=== PATIENT | male | born 1965 | race Caucasian/White ===

== ENCOUNTER 2019-10-17 01:26 | Emergency (ER) | payer OTHER ==
[~2019-10-17] VITALS: Ht 185.4 cm; Wt 94.0 kg
[~2019-10-17 01:26] MED LIST: CLON0.1T12 PO; CLONAZEPAM1 MG PO; CYCL10TA2 PO; FOLI20CA PO; HYDR-3164 PO; IBUP-1670 PO; LORA-434 PO; METO-239 PO; METO25TA4 PO; MULT-246 PO; PARO40TA61 PO; THIA100T57 PO
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
[2019-10-17] MEDS ORDERED: LIDOCAINE 1% PF 30 ML VIAL. INJ ONE (01:45)
--- NOTE | 2019-10-17 02:17 | RAD ---
CT scan of the head without contrast 10/17/2019 Clinical History: Head injury. Technique: Unenhanced, contiguous, 5 mm axial sections were obtained through the head. One or more of the following individualized dose reduction techniques were utilized for this study: 1. Automated exposure control. 2. Adjustment of the mA and/or kV according to patient size. 3. Use of iterative reconstruction technique. Findings: Comparison study is dated 05/18/2019. There is generalized parenchymal atrophy. Areas of decreased attenuation are seen within the periventricular and subcortical white matter of both cerebral hemispheres consistent with areas of small vessel ischemic disease. No acute parenchymal abnormality is seen. No extra-axial fluid collection is noted. No skull fracture is seen. Soft tissue swelling with an associated laceration is seen involving the right frontal scalp. Impression: No acute intracranial abnormality is seen. Electronically signed by: Paulo Alcantara MD (10/17/2019 2:14 AM) [id number]
[2019-10-17 03:35] VITALS: BP 126/84
== END 2019-10-17 03:40 | disposition home or self-care (01) ==
LOC: ER 01:26 → EEVIPCON 01:26 → ER 03:40
DX: S01.81XA Laceration without foreign body of other part of head, initial encounter (principal); R51 Headache; I10 Essential (primary) hypertension; F41.9 Anxiety disorder, unspecified; F32.9 Major depressive disorder, single episode, unspecified; Y08.89XA Assault by other specified means, initial encounter; Y93.89 Activity, other specified; Y92.89 Other specified places as the place of occurrence of the external cause; Y99.8 Other external cause status
CPT/HCPCS: 12015; 70450; 99284; J3490

== ENCOUNTER 2019-11-01 17:13 | Emergency (ER) | payer SELFPAY ==
[~2019-11-01] VITALS: Ht 180.3 cm; Wt 94.9 kg
[2019-11-01 17:25] VITALS: BP 159/90
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
== END 2019-11-01 18:27 | disposition home or self-care (01) ==
LOC: ER 17:13
DX: S01.81XD Laceration without foreign body of other part of head, subsequent encounter (principal); F10.10 Alcohol abuse, uncomplicated; Z98.890 Other specified postprocedural states; Y08.89XD Assault by other specified means, subsequent encounter
CPT/HCPCS: 99284

== ENCOUNTER 2019-12-13 11:02 | Emergency (ER) | payer SELFPAY ==
[~2019-12-13] VITALS: Ht 185.4 cm; Wt 95.0 kg
[2019-12-13 11:20] VITALS: BP 159/85
[2019-12-13] MEDS ORDERED: CETIRIZINE HCL 10 MG TABLET. PO STA (11:38)
[2019-12-13] MEDS ORDERED: predniSONE 20 MG TABLET PO ONE (11:45)
[2019-12-13] MEDS ORDERED: FAMOTIDINE 20 MG TABLET. PO ONE (11:45)
--- NOTE | 2019-12-13 12:46 | RAD ---
Ultrasound venous system of the lower extremities 12/13/2019. Reason for exam: Swelling. Color Doppler and spectral waveform analysis was performed along with real-time grayscale technique. The deep venous system of both lower extremities shows normal compressibility and normal Doppler flow and augmentation of flow extending from the common femoral segment to the popliteal segment. The visualized calf veins also appear normal. IMPRESSION: No evidence of DVT. Electronically signed by: Asad Perry Jr., MD (12/13/2019 12:43 PM) [facility]
[2019-12-13] MEDS ORDERED: DIPH25CA58 PO (12:57)
[2019-12-13] MEDS ORDERED: FAMO20TA5 PO (12:57)
[2019-12-13] MEDS ORDERED: PRED-220 PO (12:57)
--- NOTE | 2019-12-13 12:57 | PHYS DOC ---
Past Medical History Past Medical History: Other Additional Past Medical Histor: RHEUMATIC FEVER, HEMORROID,SKINCANCER,ETOH Past Surgical History: Other Additional Past Surgical Histo: SKIN CA-L EAR Smoking Status: Current Every Day Smoker Alcohol Use: Heavy Additional Information: DRINKS 6-8 DRINKS DAILY. Drug Use: None General Adult EDM: Chief Complaint: SKIN PROBLEM HPI: HPI: Patient is a 53 year old male who presents to the ED today to be evaluated for a rash to bilateral lower extremities as well as swelling. Patient states on Friday he was camping and walked through switch grass which cut his leg, he states 2 days ago he noted increased swelling to bilateral lower extremities. Denies any fever. Patient is requesting to also be checked to make sure he does not have a DVT to his legs. Review of Systems: Review of Systems: Constitutional: Denies fever or chills. [] Musculoskeletal: Denies back pain or joint pain. [] Integument: Rash to bilateral lower extremities Neurologic: Denies headache, focal weakness or sensory changes. [] Psychiatric: Denies depression or anxiety. [] Heart Score: Risk Factors: Risk Factors: DM, Current or recent (<one month) smoker, HTN, HLP, family history of CAD, obesity. Risk Scores: Score 0 - 3: 2.5% MACE over next 6 weeks - Discharge Home Score 4 - 6: 20.3% MACE over next 6 weeks - Admit for Clinical Observation Score 7 - 10: 72.7% MACE over next 6 weeks - Early Invasive Strategies Current Medications: Current Medications Medications (Trade) Dose Ordered Sig/Candace Start Time Stop Time Status Last Admin Dose Admin Cetirizine HCl (ZyrTEC) 10 mg 1X STAT 12/13/19 11:38 12/13/19 11:41 DC 12/13/19 12:08 10 MG Famotidine (Pepcid) 20 mg 1X ONCE 12/13/19 11:45 12/13/19 11:46 DC 12/13/19 12:08 20 MG Prednisone (Prednisone) 60 mg 1X ONCE 12/13/19 11:45 12/13/19 11:46 DC 12/13/19 12:08 60 MG Allergies: Allergies: Allergies Coded Allergies Type Severity Reaction Last Updated Verified No Known Drug Allergies 11/01/19 No Physical Exam: PE: Constitutional: Well developed, well nourished, no acute distress, non-toxic appearance. [] Skin: Warm, dry, bilateral lower extremities with moderate amount of linear erythematous rash, there is +2 edema to bilateral lower extremities. +2 pedal pulses bilaterally. Negative Homans sign bilaterally. Back: No tenderness, no CVA tenderness. [] Extremities: No tenderness, no cyanosis, no clubbing, ROM intact, no edema. [] Neurologic: Alert and oriented X 3, normal motor function, normal sensory function, no focal deficits noted. [] Psychologic: Affect normal, judgement normal, mood normal. [] Current Patient Data: Vital Signs: Vital Signs Date Time Temp Pulse Resp B/P (MAP) Pulse Ox O2 Delivery O2 Flow Rate FiO2 12/13/19 11:20 98.5 89 16 159/85 (109) 97 Room Air 98.5 EKG: EKG: [] Radiology/Procedures: Radiology/Procedures: []PROCEDURE: VENOUS LOWER EXT BILATERAL Ultrasound venous system of the lower extremities 12/13/2019. Reason for exam: Swelling. Color Doppler and spectral waveform analysis was performed along with real-time grayscale technique. The deep venous system of both lower extremities shows normal compressibility and normal Doppler flow and augmentation of flow extending from the common femoral segment to the popliteal segment. The visualized calf veins also appear normal. IMPRESSION: No evidence of DVT. Electronically signed by: Mohsen Gomez Jr., MD (12/13/2019 12:43 PM) [facility] DICTATED and SIGNED BY: MOHSEN GOMEZ Jr, MD DATE: 12/13/19 1243 Course & Med Decision Making: Course & Med Decision Making Pertinent Labs and Imaging studies reviewed. (See chart for details) This is a 53-year-old male patient who presents to the ED today with a rash to bilateral lower extremities after walking through switch grass during a camping event. He is also requesting his bilateral lower extremities to be checked to make sure he does not have a blood clot. Venous Dopplers of bilateral lower extremities are negative. He was given prescription for prednisone for his rash. Benadryl and Pepcid also recommended. Follow-up with primary care doctor in 1 to 2 weeks. Dragon Disclaimer: Dragon Disclaimer: This electronic medical record was generated, in whole or in part, using a voice recognition dictation system. Departure Departure Impression: Primary Impression: Contact dermatitis Qualified Codes: L23.7 - Allergic contact dermatitis due to plants, except food Disposition: 01 HOME, SELF-CARE Condition: STABLE Referrals: LIT ROBERT JR, MD (PCP) follow up in 2 weeks Patient Instructions: Contact Dermatitis, [id number] Additional Instructions: You were evaluated in the emergency room for a rash. Take the prescribed medications as ordered. Follow-up with your own doctor in 1 to 2 weeks. Come back to the ED at any point symptoms worsen. Scripts Famotidine (FAMOTIDINE) 20 Mg Tablet 20 MG PO DAILY, #7 TAB Prov: GANGA WEI APRN 12/13/19 Diphenhydramine Hcl (BENADRYL) 25 Mg Capsule 1 CAP PO Q6-8HRS PRN for RASH, #30 CAP 0 Refills Prov: GANGA WEI APRN 12/13/19 Prednisone (PREDNISONE ) 10 Mg Tablet 10 MG PO UD for PREDNISONE TAPER, #39 TAB 0 Refills Take 3 tablets by mouth twice a day for 3 days, then take 2 tablets by mouth twice a day for 3 days, then take 1 tablet by mouth twice a day for 3 days, then take 1 tablet by mouth daily x 3 days, then stop. Prov: GANGA WEI APRN 12/13/19 Justicifation of Admission Dx: Justifications for Admission: Justification of Admission Dx: N/A GANGA WEI APRN Dec 13, 2019 12:57
== END 2019-12-13 13:19 | disposition home or self-care (01) ==
LOC: ER 11:02
DX: L23.7 Allergic contact dermatitis due to plants, except food (principal); R60.0 Localized edema; F17.200 Nicotine dependence, unspecified, uncomplicated; F10.10 Alcohol abuse, uncomplicated; Z98.890 Other specified postprocedural states
CPT/HCPCS: 93970; 99284; J7512